=== PATIENT | female | born 1990 | race Caucasian/White ===

== ENCOUNTER 2016-12-04 03:14 | Emergency (ER) | payer OTHER ==
[2016-12-04] MEDS ORDERED: PROPARACAINE 0.5% OP SOLN ONE (06:10)
[2016-12-04] MEDS ORDERED: Ibuprofen 400 MG TAB ONE (06:10)
== END 2016-12-04 06:53 | disposition home or self-care (01) ==
LOC: ER 03:14
DX: S00.83XA Contusion of other part of head, initial encounter (principal); S00.11XA Contusion of right eyelid and periocular area, initial encounter; H53.8 Other visual disturbances; Y04.2XXA Assault by strike against or bumped into by another person, initial encounter; Y92.009 Unspecified place in unspecified non-institutional (private) residence as the place of occurrence of the external cause
CPT/HCPCS: 70450; 70486; 72125